=== PATIENT | female | born 1985 | race Two or more races ===

== ENCOUNTER 2023-08-01 12:47 | Observation (INO) | payer MEDICAID ==
[~2023-08-01] VITALS: Ht 162.6 cm; Wt 86.2 kg
[2023-08-01] MEDS ORDERED: ACETAMINOPHEN 325 MG TAB PO PRN (14:00)
== END 2023-08-01 15:00 | disposition home or self-care (01) ==
LOC: UNDOADMOB 12:47 → LDRP 12:47
PROVIDERS: ADMIT Obstetrics & Gynecology; ATTEND Obstetrics & Gynecology
DX: O26.892 Other specified pregnancy related conditions, second trimester (principal); R10.30 Lower abdominal pain, unspecified; Z3A.27 27 weeks gestation of pregnancy
CPT/HCPCS: 59025; 76815; 81002; 94760; G0378